=== PATIENT | female | born 1945 | race Caucasian/White ===

== ENCOUNTER 2021-05-27 11:57 | Emergency (ER) | payer MEDICAID, MEDICARE ==
[~2021-05-27] VITALS: Ht 165.1 cm; Wt 52.0 kg
[2021-05-27 12:22] VITALS: BP 125/80
--- NOTE | 2021-05-27 23:53 | NUR ---
[id number] FOR RECHECK
--- NOTE | 2021-05-28 01:07 | NUR ---
NA X 2 WHEN CALLED FOR ROOM
--- NOTE | 2021-05-28 01:44 | NUR ---
Keena holland in [facility] - 05/28/21 at 0144 by CARI NA X 1
--- NOTE | 2021-05-28 01:44 | NUR ---
NA X 3 WHEN CALLED FOR ROOM
== END 2021-05-28 01:46 | disposition left against medical advice (07) ==
LOC: ED 23:59
DX: M25.552 Pain in left hip (principal)
CPT/HCPCS: 72110; 99283